=== PATIENT | female | born 1935 | race Caucasian/White ===

== ENCOUNTER 2016-06-16 10:22 | Inpatient (IN) | payer OTHER, BC ==
[~2016-06-16] VITALS: Ht 154.9 cm; Wt 72.6 kg
[~2016-06-16 10:22] MED LIST: ALBUTEROL2.5 MG/0.5 INH; ASPIR 8181 MG PO; ASPIRIN EC81 M1 PO; CENTRUM SILVER1 EAC4 PO; CLONAZEPAM 0.50.5 M1 PO; COENZYME Q10100 M2 PO; COQ1050 MG PO; COZAAR 50 MG TA50 M1 PO; DETROL LA4 MG PO; DUONEB 2.5-0.5 M3 ML INH; FISH OIL + D31 EACH PO; FISH OIL 1,001000 M2 PO; FLONASE 0.05%50 MCG NASAL; FOSAMAX 70 MG T70 MG PO; HYDRALAZINE 2525 MG PO; HYDROCHLOROTH12.5 MG; LASIX 20 MG TAB20 MG PO; LEVOTHYROXIN0.075 MG PO; LIPITOR10 MG PO; NITROGLYCERIN0.4 MG SUBLING; NORCO 5-325 TA1 EACH PO; NORVASC10 MG PO; PAROXETINE HCL20 MG PO; PAXIL10 MG PO; PERFOROMIS20 MCG/2 M IH; PRINIVIL10 MG PO; PROAIR HFA8.5 GM INH; PULMICORT0.25 MG/3 INH; SPIRIVA; SPIRIVA INH; TOPROL XL50 MG; TOPROL XL50 MG PO; VESICARE10 M1 PO; VITAMIN D35000 UNI1 PO; VITAMIN D35000 UNIT PO; VYTORIN 10-401 EACH PO
[2016-06-16 10:23] VITALS: BP 141/66
[2016-06-16] MEDS ORDERED: CO Q-10100 MG PO (10:43)
[2016-06-16 10:46] LABS: URINE BILIRUBIN NEGATIVE (Negative); URINE BLOOD NEGATIVE (Negative); URINE COLOR YELLOW; URINE GLUCOSE-RANDOM* NEGATIVE (Negative); URINE KETONES NEGATIVE (Negative); URINE NITRITE NEGATIVE (Negative); URINE PROTEIN (DIPSTICK) NEGATIVE (Negative); URINE UROBILINOGEN 0.2 E.U./dl (0.2-1.0)
[2016-06-16 12:19] LABS: BASOPHILS 0.7 % (0.0-2.0); EOSINOPHILS 3.2 % (0.0-3.0); HEMATOCRIT 35.3 % (37.0-47.0); HEMOGLOBIN 11.8 gm/dL (12.0-15.0); LYMPHOCYTES 23.5 % (24.0-44.0); MCH 33.6 pg (26.0-34.0); MCHC 33.6 g/dL (28.0-37.0); MCV 100.2 fL (80.0-100.0); MONOCYTES 11.5 % (1.0-8.0); PLATELET COUNT 193 thou/uL (150-400); POLYS 61.1 % (36.0-66.0); RBC 3.52 mil/uL (4.20-5.00); WBC 4.9 thou/uL (4.0-11.0)
[2016-06-16 12:21] LABS: MANUAL DIFF NO
[2016-06-16 12:23] LABS: CALCIUM 9.2 mg/dL (8.5-10.1); CREATININE 0.8 mg/dL (0.6-1.0)
[2016-06-16 12:28] LABS: ALBUMIN 3.4 g/dL (3.4-5.0); TOTAL BILIRUBIN 0.5 mg/dL (<0.1-1.0); TOTAL PROTEIN 6.6 g/dL (6.4-8.2)
[2016-06-16 13:49] VITALS: BP 143/67
[2016-06-16 14:34] VITALS: BP 158/140
[2016-06-16 19:10] VITALS: BP 122/73
[2016-06-17 03:48] LABS: HEMATOCRIT 35.7 % (37.0-47.0); MCH 33.8 pg (26.0-34.0); MCHC 33.7 g/dL (28.0-37.0); MCV 100.2 fL (80.0-100.0); RBC 3.56 mil/uL (4.20-5.00); RDW 13.3 % (10.5-14.5); WBC 4.5 thou/uL (4.0-11.0)
[2016-06-17 03:59] LABS: CALCIUM 9.1 mg/dL (8.5-10.1); POTASSIUM 4.8 mmol/L (3.5-5.1)
[2016-06-17 04:20] VITALS: BP 148/77
[2016-06-17 07:12] VITALS: BP 150/83
[2016-06-17] MEDS ORDERED: CYCLOBENZAPRINE5 MG PO (14:11)
[2016-06-17] MEDS ORDERED: HYDROCODON-ACE1 EAC7 PO (14:12)
[2016-06-17 14:21] VITALS: BP 150/83
== END 2016-06-17 15:31 | disposition home or self-care (01) | DRG 551 ==
LOC: ER 10:22 → EROBS 12:32 → 4W 12:32
PROVIDERS: Hospitalist; Nurse Practitioner Family
DX: M54.89 Other dorsalgia (principal); J96.00 Acute respiratory failure, unspecified whether with hypoxia or hypercapnia; M48.54XA Collapsed vertebra, not elsewhere classified, thoracic region, initial encounter for fracture; M48.56XA Collapsed vertebra, not elsewhere classified, lumbar region, initial encounter for fracture; E78.5 Hyperlipidemia, unspecified; J44.9 Chronic obstructive pulmonary disease, unspecified; I10 Essential (primary) hypertension; M54.16 Radiculopathy, lumbar region; E03.9 Hypothyroidism, unspecified; Z87.891 Personal history of nicotine dependence; I25.2 Old myocardial infarction
CPT/HCPCS: 10040

== ENCOUNTER 2016-12-23 13:45 | Emergency (ER) | payer OTHER, BC ==
[~2016-12-23] VITALS: Ht 152.4 cm; Wt 64.4 kg
[~2016-12-23 13:45] MED LIST changes: +CO Q-10100 MG PO; +CYCLOBENZAPRINE5 MG PO; +HYDROCODON-ACE1 EAC7 PO
[2016-12-23] MEDS ORDERED: NORCO 5-325 TA1 EACH PO (14:35)
[2016-12-23] MEDS ORDERED: NEOMYC-POLYM-DEX5 ML OPHTHALMIC (14:36)
== END 2016-12-23 14:49 | disposition home or self-care (01) ==
LOC: ER 13:45
DX: T26.11XA Burn of cornea and conjunctival sac, right eye, initial encounter (principal); E78.5 Hyperlipidemia, unspecified; J44.9 Chronic obstructive pulmonary disease, unspecified; I10 Essential (primary) hypertension; I25.2 Old myocardial infarction; F10.99 Alcohol use, unspecified with unspecified alcohol-induced disorder; Z87.891 Personal history of nicotine dependence; W86.1XXA Exposure to industrial wiring, appliances and electrical machinery, initial encounter; Y93.89 Activity, other specified; Y92.89 Other specified places as the place of occurrence of the external cause; Y99.8 Other external cause status

== ENCOUNTER 2017-02-23 16:46 | Emergency (ER) | payer OTHER, BC ==
[~2017-02-23] VITALS: Ht 152.4 cm; Wt 65.8 kg
--- NOTE | ~2017-02-23 | EKG ---
[address] [address] ELECTROCARDIOGRAM REPORT Name: GAMAL RAINEY Room #: DEP [facility]#: [id number] Admission: 02/23/17 Attend Phys: Discharge: 02/23/17 Date of : 35 Report #: [id number] THIS REPORT FOR: //name// [facility] ED Test Date: 2017-02-23 Test Time: 17:03:37 Pat Name: GAMAL RAINEY Department: Room: Gender: F Timber Faller: DIANNA : 1935 Requested By: Rocael Jones Order Number: [id number] MD: William Grey Measurements Intervals [place] Rate: 77 P: -19 CT: 188 QRS: 20 QRSD: 154 T: 48 QT: 430 QTc: 487 Interpretive Statements Sinus rhythm Right bundle branch block Baseline wander in lead(s) III,aVF Compared to ECG 01/02/2016 07:39:50 Right bundle-branch block now present Electronically Signed On 02-25-2017 14:03:14 COUNSELING AIDE by William Grey [email or web address] <ELECTRONICALLY SIGNED> By: William Grey MD, FAC 02/25/17 1403 1703 170 William Grey MD, [facility] /EPI
[~2017-02-23 16:46] MED LIST changes: +NEOMYC-POLYM-DEX5 ML OPHTHALMIC
[2017-02-23 17:23] LABS: ABSOLUTE NEUTROPHILS 2.5 thou/uL (1.4-8.2); BASOPHILS 0.8 % (0.0-2.0); EOSINOPHILS 1.5 % (0.0-3.0); HEMATOCRIT 36.6 % (37.0-47.0); HEMOGLOBIN 12.6 gm/dL (12.0-15.0); LYMPHOCYTES 28.4 % (24.0-44.0); MCH 33.5 pg (26.0-34.0); MCHC 34.5 g/dL (28.0-37.0); MCV 97.1 fL (80.0-100.0); MONOCYTES 11.2 % (1.0-8.0); PLATELET COUNT 177 thou/uL (150-400); POLYS 58.1 % (36.0-66.0); RBC 3.77 mil/uL (4.20-5.00); RDW 12.4 % (10.5-14.5); WBC 4.4 thou/uL (4.0-11.0)
[2017-02-23 17:34] LABS: ANION GAP 6 mmol/L (7-16); BUN 10 mg/dL (7-18); CALCIUM 10.2 mg/dL (8.5-10.1); CHLORIDE 100 mmol/L (98-107); CO2 33 mmol/L (21-32); GLUCOSE 106 mg/dL (74-106); POTASSIUM 3.5 mmol/L (3.5-5.1); SODIUM 139 mmol/L (136-145)
[2017-02-23 17:42] LABS: TROPONIN-I < 0.04 ng/mL (<0.06)
[2017-02-23 18:33] VITALS: BP 142/69
== END 2017-02-23 18:53 | disposition home or self-care (01) ==
LOC: ER 16:46
PROVIDERS: Emergency Medicine
DX: J44.1 Chronic obstructive pulmonary disease with (acute) exacerbation (principal); E78.5 Hyperlipidemia, unspecified; I10 Essential (primary) hypertension; Z87.891 Personal history of nicotine dependence

== ENCOUNTER 2018-11-17 08:39 | Emergency (ER) | payer OTHER, BC ==
[~2018-11-17] VITALS: Ht 152.4 cm; Wt 61.2 kg
[2018-11-17 10:56] VITALS: BP 134/67
--- NOTE | 2018-11-17 12:30 | EKG ---
[address] [address] ELECTROCARDIOGRAM REPORT Name: GAMAL RAINEY Room #: DEP [facility]#: [id number] Admission: 11/17/18 Attend Phys: Discharge: 11/17/18 Date of : 35 Report #: [id number] THIS REPORT FOR: //name// [facility] ED Test Date: 2018-11-17 Test Time: 08:42:31 Pat Name: GAMAL RAINEY Department: Room: Gender: F Hotel Yardperson: ALISSA : 1935 Requested By: Shaneka Rutledge Order Number: [id number] MD: William Grey Measurements Intervals [place] Rate: 96 P: 3 MI: 177 QRS: 92 QRSD: 151 T: 34 QT: 391 QTc: 495 Interpretive Statements Sinus rhythm RBBB and LPFB Compared to ECG 02/23/2017 17:03:37 No significant change was found Electronically Signed On 11-17-2018 12:30:26 CDT by William Grey [email or web address] <ELECTRONICALLY SIGNED> By: William Grey MD, [facility] 11/17/18 1230 1 1 William Grey MD, [facility] /EPI
== END 2018-11-17 11:12 | disposition home or self-care (01) ==
LOC: ER 08:39
DX: J31.0 Chronic rhinitis (principal); R06.00 Dyspnea, unspecified; E78.5 Hyperlipidemia, unspecified; I10 Essential (primary) hypertension; I25.2 Old myocardial infarction; J44.9 Chronic obstructive pulmonary disease, unspecified; Z98.890 Other specified postprocedural states; Z87.891 Personal history of nicotine dependence

== ENCOUNTER 2019-12-24 23:55 | Inpatient (IN) | payer OTHER, BC ==
[~2019-12-24] VITALS: Ht 152.4 cm; Wt 50.1 kg
--- NOTE | ~2019-12-24 | EMS ---
[place] [address] EMS Patient Care Report Name: GAMAL RAINEY Room #: PRE M.R.#: [id number] Admission: Attend Phys: Discharge: Date of : 35 Report #: [id number] THIS REPORT FOR: //name// Report Transmitted: 12/25/2019 00:13 EMS Care Summary [place], [place]/[facility] Incident [phone] @ 12/24/2019 23:24 Incident Location [address] 200 Patient GAMAL RAINEY Female, 84 Years 1935 Patient Address [address] [address] Patient History Cancer, Unspecified,Chronic Obstructive Pulmonary Disease (COPD),Hypertension (HTN),Hyperlipidemia,Cardiac Condition - Other, Patient Allergies No known allergies, Patient Medications Unknown, Chief Complaint FALL Disposition Transported No Lights/[place] Dispatch Reason Traumatic Injury Transported To [facility] Narrative DISPATCHED NON EMERGENCY ON A TRAUMATIC INJURY. 84 Y/O FEMALE SITTING UP ON FLOOR IN APARTMENT NEXT TO BED APPEARING IN NO IMMEDIATE DISTRESS. GCS [address] [address] EMS Patient Care Report Name: GAMAL RAINEY Room #: PRE [facility].R.#: [id number] Admission: Attend Phys: Discharge: Date of : 35 Report #: [id number] A/OX4. CONSENTS FOR TX AND TRASPORTATION. PT HAS OXYGEN ON VIA N/C. PT STATES THAT SHE WEARS OXYGEN AT HOME AT 4 LPM. PT CONTINUED ON OXYGEN AT 4 LPM. PT STATES SHE WAS WALKING BACK TO BED FROM USING THE RESTROOM AND FELL. DENIES ANY DIZZINESS OR LOSS OF CONSCIOUSNESS. DENIES TAKING ANY BLOOD THINNERS. PAIN THAT IS WORSE UPON MOVEMENT TO RIGHT UPPER LEG AT 10. DENIES ANY OTHER MEDICAL COMPLAINTS. MOVED WITHOUT INCIDENT TO AMBULANCE VIA STRETCHER. V/S'S OBTAINED. TRANSPORTED TO [facility]. REASSESSED ENROUTE. REMAINS GCS 15 AND ALERT. PAIN REMAINS UNCHANGED AT 10. REPORT CALLED TO HOSPITAL. 2ND SET V/S'S OBTAINED. MOVED WITHOUT INCIDENT TO ER HOSPITAL BED 2. PT CARE TRANSFERRED TO ED RN. Initial Vitals @23:51P: 61,R: 18,BP: 176/80,Pain: 1010,GCS: 15,Revised Trauma: 12, @23:47P: 65,R: 16,BP: 166/79,Pain: 10/10,GCS: 15,SpO2: 95,Revised Trauma: 12, Assessments @23:39MENTAL:Person Oriented,Time Oriented,Event Oriented,Place Oriented,SKIN:HEENT:Eyes: Right Pupil: 4-mm,Eyes: Left Pupil: 4-mm,Head/Face: No Abnormalities,LUNG SOUNDS:Left Upper: Other,General: No Abnormalities,ABDOMEN:Left Upper: Other,General: No Abnormalities,PELVIS//GI:EXTREMITIES:Right Leg: Other,Right Leg: MAYDA,Capillary Refill: Right Upper: < 2 Sec,Capillary Refill: Left Upper: < 2 Sec,Capillary Refill: Right Lower: < 2 Sec,Capillary Refill: Left Lower: < 2 Sec,Left Arm: No Abnormalities,Right Arm: No Abnormalities,Left Leg: No Abnormalities,PULSE:Radial: 2+ Normal,NEURO:No Abnormalities, Impression Injury of Thigh (Upper Leg) Procedures @23:39ALS AssessmentResponse: UnchangedSucceeded@23:41StretcherResponse: Unchanged@PTAOxygen FlowRate: 4 Device: Nasal Cannula (NC) Response: Unchanged Timeline HAIRSPRING STUDDER,Oxygen FlowRate: 4 Device: Nasal Cannula (NC) Response: Unchanged 23:22,Call Received 23:22,Dispatch Notified 23:24,Dispatched 23:24,En Route 23:31,On Scene 23:38,At Patient 23:39,ALS Assessment,Response: UnchangedSucceeded, 23:41,Stretcher,Response: Unchanged 23:47,BP: 166/79 M,PULSE: 65,RR: 16 R,SPO2: 95 Ox,ETCO2: ,BG: ,PAIN: 10,GCS: 15, 23:48,Depart Scene [address] [place] [address] EMS Patient Care Report Name: GAMAL RAINEY JUVENAL Room #: PRE ER M.R.#: [id number] Admission: Attend Phys: Discharge: Date of : 35 Report #: [id number] 23:51,BP: 176/80 M,PULSE: 61,RR: 18 R,SPO2: Ox,ETCO2: ,BG: ,PAIN: 10,GCS: 15, 23:51,At Destination 00:05,Call Closed Disclaimer v1.1 Copyright 2020 [employer] This EMS Care Summary contains data elements from the applicable legal record (which may be displayed differently). It is designed to provide pertinent information for the following purposes: continuity of care, clinical quality, and state data reporting. The complete legal record is available to ED staff and administrators of the receiving hospital in [employer]'s Patient Tracker. All data is provided "as is."
[2019-12-24 23:56] VITALS: BP 188/74
[2019-12-25] VITALS (10 sets, daily range): BP systolic 105–147; BP diastolic 64–90
[2019-12-25] MEDS ORDERED: TOPROL XL50 MG PO (00:05)
[2019-12-25] MEDS ORDERED: XALATAN2.5 ML OPHTHALMIC (00:05)
[2019-12-25] MEDS ORDERED: LEVO-T75 MCG PO (00:05)
[2019-12-25] MEDS ORDERED: TRAMADOL 50 MG50 MG PO (00:06)
[2019-12-25] MEDS ORDERED: LIDODERM1 EACH TOP (00:06)
[2019-12-25 01:11] LABS: ABSOLUTE NEUTROPHILS 2.7 thou/uL (1.4-8.2); BASOPHILS 0.3 % (0.0-2.0); EOSINOPHILS 2.5 % (0.0-3.0); HEMATOCRIT 32.2 % (37.0-47.0); HEMOGLOBIN 10.6 gm/dL (12.0-15.0); LYMPHOCYTES 29.7 % (24.0-44.0); MCH 34.1 pg (26.0-34.0); MCHC 32.9 g/dL (28.0-37.0); MCV 103.7 fL (80.0-100.0); MONOCYTES 11.7 % (1.0-8.0); PLATELET COUNT 167 thou/uL (150-400); POLYS 55.8 % (36.0-66.0); RDW 12.5 % (10.5-14.5); WBC 4.8 thou/uL (4.0-11.0)
[2019-12-25 01:16] LABS: CALCIUM 9.4 mg/dL (8.5-10.1); CREATININE 0.8 mg/dL (0.6-1.0); POTASSIUM 3.8 mmol/L (3.5-5.1)
--- NOTE | 2019-12-25 03:38 | NUR ---
ATTEMPTED TO CALL REPORT, PHONE KEPT RINGING WITH NO ANSWER
--- NOTE | 2019-12-25 06:28 | NUR ---
PT ARRIVED FROM ER THIS AM @0410. A&OX4 [place] WITH HEARING AIDS BY BEDSIDE. ADMISSION DONE AND PT ORIENTED TO THE UNIT. CLEAR LUNGS SOUND AND NO SKIN ISSUE. NPO FOR POSSIBLE SX. RT HIP FX. VSS. FALL PREC IN PLACE AND CALL LIGHT IN REACH WILL CONT TO MONITOR.
--- NOTE | 2019-12-25 08:46 | EKG ---
[facility] [address] [place] [address] ELECTROCARDIOGRAM REPORT Name: GAAML RAINEY Room #: 438-P ADM IN M.R.#: [id number] Admission: 12/25/19 Attend Phys: Yoandy Cutler, Discharge: Date of : 35 Report #: [id number] THIS REPORT FOR: cc: MOSHE DARLING Physician not on staff William Grey MD [facility] THIS REPORT FOR: //name// [facility] ED Test Date: 2019-12-25 Test Time: 02:51:29 Pat Name: GAMAL RAINEY Department: Room: [facility] Gender: F Medical Technicians: sunil : 1935 Requested By: Cliff Mondragon Order Number: [id number] MD: William Grey Measurements Intervals [place] Rate: 69 P: 0 MA: 196 QRS: 62 QRSD: 155 T: 44 QT: 466 QTc: 500 Interpretive Statements Sinus rhythm Right bundle branch block Compared to ECG 11/17/2018 08:42:31 No significant change was found Electronically Signed On 12-25-2019 8:45:58 CDT by William Grey [email or web address] <ELECTRONICALLY SIGNED> By: William Grey MD, FACC 12/25/19 0845 0 025 William Grey MD, [facility] /EPI
--- NOTE | 2019-12-25 09:13 | NUR ---
ASSESSMENT: CM REVIEWED CHART AND MET WITH PT AT THE BEDSIDE. PT IS ALERT AND ORIENTED X4. PT ADMITS FROM [facility]. PT REPORTS LIVING IN AN APT ALONE. PT HAS A RIGHT HIP FX AND IS GOING TO GET SURGICAL REPAIR. PT REPORTS USING A CANE AND WALKER AT HER APT. PT REPORTS GETTING 3MEALS/DAY AT [facility]. PT REPORTS SHE DOES NOT CURRENTLY HAVE HH. PT STATES SHE HAS OXYGEN AT HER APT THROUGH [employer]. CM DISCUSSED ROLE. CM ALSO RECEIVED A CALL FROM WHO IS CONSULTED AND WILL SEE HOW PATIENT IS ABLE TO DO WITH THERAPIES POST OP. CM DISCUSSED WITH PATIENT AND PT IS AGREEABLE IF SHE IS TO QUALIFY. CM WILL CONTINUE TO FOLLOW TO ASSIST NEEDED.
--- NOTE | 2019-12-25 14:01 | NUR ---
PT AOX4, [place], VSS, WENT TO SURGURY FOR RIGHT HIP. PT CAME BACK TO UNIT 1400, DRESSING ON RIGHT HIP IS CDI. PT HAS SCDS, ICE PACK, 2L O2 PER NC. PT IS CURRENTLY SLEEPING, DENIES PAIN AT THIS TIME. IV PATENT IN L AC, FLUIDS RUNNING ORDERED. FALL PRECAUTIONS IN PLACE, WILL CONTINUE TO MONITOR.
--- NOTE | 2019-12-25 17:08 | NUR ---
PATIENT ADMITTED FROM OR WITH L5-S1 LAMINECTOMY, AQUACEL DRESSIN IN PLACE TO LOW BACK. PATIENT C/O MILD PAIN TO BACK AREA. PATIENT DOESN'T WANT ACCOUNTS RECEIVABLE EXECUTIVE PUMP, THIS RN NOTIFIED DR STILL, DR STILL HERE TO SEE THE PATIENT, DR STILL STATES PATIENT DOESN'T NEED ACCOUNTS RECEIVABLE EXECUTIVE PUMP WILL DISCONTINUE. NO C/O NAUSEA, DIET UPGRADED TO REGULAR DIET. ADMISSION COMPLETED, REPORT GIVEN TO KEENA/RN.
[2019-12-26 00:18] VITALS: BP 100/63
--- NOTE | 2019-12-26 04:01 | NUR ---
ASSESSED AT START OF SHIFT. PT A&OX4, [place]F[employer] SAL[place]. IV PAIN MED GIVEN FOR RT HIP PAIN. DRESSING C/D/I. IV INTACT WITH IVF. PT ON 2L NC. SPOKE WITH PT ADEN RAINEY AT START OF SHIFT ([phone]) UPDATED HER ON PT CARE AND PROGRESS. ICE PACK FOR COMFORT. PT VOIDS VIA BEDPAN. SCD'S IN PLACE. FALL PREC MAINTAINED AND WILL CONT WITH POC TILL EOS.
[2019-12-26 04:15] VITALS: BP 111/66
[2019-12-26 05:38] LABS: ABSOLUTE NEUTROPHILS 3.9 thou/uL (1.4-8.2); BASOPHILS 0.2 % (0.0-2.0); HEMATOCRIT 23.4 % (37.0-47.0); LYMPHOCYTES 8.8 % (24.0-44.0); MCH 34.6 pg (26.0-34.0); MCHC 33.3 g/dL (28.0-37.0); MCV 104.1 fL (80.0-100.0); MONOCYTES 8.3 % (1.0-8.0); PLATELET COUNT 133 thou/uL (150-400); POLYS 82.7 % (36.0-66.0); RBC 2.24 mil/uL (4.20-5.00); RDW 12.7 % (10.5-14.5); WBC 4.8 thou/uL (4.0-11.0)
[2019-12-26 05:44] LABS: CALCIUM 9.2 mg/dL (8.5-10.1); CREATININE 0.9 mg/dL (0.6-1.0); MAGNESIUM 1.6 mg/dL (1.8-2.4); POTASSIUM 4.9 mmol/L (3.5-5.1)
[2019-12-26 05:51] LABS: HEMOGLOBIN 7.8 gm/dL (12.0-15.0)
[2019-12-26 07:40] VITALS: BP 130/56
--- NOTE | 2019-12-26 09:59 | O ---
[facility] [place] [address] OPERATIVE REPORT Name: GAMAL RAINEY Room #: 438-P ADM IN M.R.#: [id number] Admission: 12/25/19 Attend Phys: Yoandy Cutler, Discharge: Date of : 35 Report #: [id number] THIS REPORT FOR: cc: MOSHE DARLING Physician not on staff Stefano Beltran MD ~ CC: Francis Cutler Physician staff Prasanna Mota DATE OF SERVICE: 12/25/2019 PREOPERATIVE DIAGNOSIS: Fracture, right proximal femur. POSTOPERATIVE DIAGNOSIS: Fracture, right proximal femur. PROCEDURE: Open reduction and internal fixation, right proximal femur fracture with antegrade TFN nail fixation. SURGEON: Stefano Beltran MD INDICATIONS: This frail, but still ambulatory 84-year-old female stumbled and fell injuring the right hip. She had a similar fracture on the left side, treated with surgical repair 1 or 2 years ago. She has been functioning reasonably well, but still has some pain on that side. She has no other new injuries. X-rays confirmed a displaced and unstable intertrochanteric fracture. I have discussed this with the patient and she understands well. She prefers to go ahead with surgical repair. DESCRIPTION OF PROCEDURE: The patient was taken to the operating room where she was placed under general anesthesia. Prophylactic intravenous antibiotics were administered. She was positioned on the fracture table such that good visualization of the right hip could be established. The lateral aspect of the right hip and thigh were meticulously prepped and draped. A small skin incision was made just proximal to the greater trochanter. A guidewire was passed down the canal and the trochanter was opened with a small reamer. The [employer]s TFN nail system was utilized with a size 10 mm nail. This was advanced to an appropriate position. A lateral guidewire was then placed through the lateral femoral cortex and in the low mid portion of the femoral neck and head. A 95 mm length helical blade was then inserted. This brought the tip of the device to about 1 cm below the subchondral bone in the mid to lower head and neck region. It seated nicely and appeared to be secure. The proximal locking screw was tightened down. A distal interlocked screw was placed using the outrigger guide. This resulted in satisfactory alignment and stability. The [address] [address] OPERATIVE REPORT Name: GAMAL RAINEY Room #: 438-P [facility] IN .R.#: [id number] Admission: 12/25/19 Attend Phys: Yoandy Cutler, Discharge: Date of : 35 Report #: [id number] skin incisions were closed with 2-0 Monocryl and skin alyson. A sterile dressing was applied. The patient was awakened and returned to the recovery room in good condition. <ELECTRONICALLY SIGNED> By: Stefano Beltran MD 12/26/19 0959 1248 1257 Stefano Beltran MD /grisel
--- NOTE | 2019-12-26 11:16 | NUR ---
PT CARE ASSUMED AT 0700. A&Ox4. SCD'S, ICEPACK IN PLACE. USINF IS FREQUENTLY.NO SKIN ISSUES, DRESSING CHANGED POST OP DAY 1. PAIN MANAGED WELL WITH PO PAIN MEDICATIONS ON BOARD. HIP PRECOUTIONS IN PLACE. LIDOCAINE PATCH APPLIED TO RIGHT LEG. ON 2L O2. BASELINE 2-3L. PT HAS LEFT HER DENTURES AT HOME AND IS ORDERING SOFTER FOODS FROM DIETARY. 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 REHAB EVALUATION TODAY FOR 5N. FALL PROTOCOL IN PLACE. CALL LIGHT IN REACH. WILL CONTINUE TO MONITOR. PT HAS ACCIDENTALY PULLED OUT IV.
[2019-12-26 12:19] LABS: ALBUMIN 2.7 g/dL (3.4-5.0); TOTAL BILIRUBIN 0.4 mg/dL (0.2-1.0); TOTAL PROTEIN 5.8 g/dL (6.4-8.2)
--- NOTE | 2019-12-26 12:47 | NUR ---
Pt B12 level low 181, recommend start supplementation.
[2019-12-26 13:13] LABS: ABSOLUTE NEUTROPHILS 7.5 thou/uL (1.4-8.2); BASOPHILS 0.1 % (0.0-2.0); HEMATOCRIT 23.1 % (37.0-47.0); HEMOGLOBIN 7.8 gm/dL (12.0-15.0); LYMPHOCYTES 7.3 % (24.0-44.0); MCH 34.7 pg (26.0-34.0); MCHC 33.7 g/dL (28.0-37.0); MCV 103.1 fL (80.0-100.0); MONOCYTES 10.8 % (1.0-8.0); PLATELET COUNT 171 thou/uL (150-400); POLYS 81.8 % (36.0-66.0); RBC 2.24 mil/uL (4.20-5.00); RDW 12.7 % (10.5-14.5); WBC 9.2 thou/uL (4.0-11.0)
--- NOTE | 2019-12-26 15:20 | NUR ---
on-going assessment: FARZANEH REVIEWED CHART AND SPOKE WITH [facility]. THEY REPORT PT IS MORE APPROPRIATE FOR SNF. THEY HAVE NOTIFIED PTS SON AND DAUGHTER IN [place]. SON REQUEST WE SPEAK WITH HIS CECY SHE KNOWS MORE INFORMAITON ABOUT PLACEMENT. CM SPOKE WITH HER AND SHE IS REQUESTING WE SEND A REFERRAL TO [facility]. CM FAXED REFERRAL AND NOTIFIED [facility] WHO REPORTS THEY ARE TIGHT ON BEDS BUT MAY HAVE ONE SUNDAY. FARZANEH SPOKE WITH ATTENDING WHO REPORTS PT WILL BE HERE OVER THE WEEKEND AND POSSIBLE DISCHARGE SUNDAY. CM WILL AWAIT FURTHER INPUT FROM [facility]. FARZANEH ALSO EMAILED CECY ALTERNATE OPTIONS FOR SNF TO REVIEW TO HER EMAIL [email or web address].
[2019-12-26 16:55] LABS: URINE BILIRUBIN NEGATIVE (Negative); URINE BLOOD NEGATIVE (Negative); URINE CLARITY CLEAR; URINE COLOR YELLOW; URINE GLUCOSE-RANDOM* NEGATIVE (Negative); URINE KETONES NEGATIVE (Negative); URINE LEUKOCYTES-REFLEX NEGATIVE (Negative); URINE NITRITE-REFLEX NEGATIVE (Negative); URINE PROTEIN (DIPSTICK) NEGATIVE (Negative); URINE SPECIFIC GRAVITY 1.025 (1.005-1.035); URINE UROBILINOGEN 0.2 E.U./dl (0.2-1.0)
[2019-12-26 17:30] VITALS: BP 133/54; BP 145/60
[2019-12-26 19:32] VITALS: BP 133/54
--- NOTE | 2019-12-27 02:10 | NUR ---
ASSUMED PT CARE AT 1915. PT IS ALERT TO SELF WITH CONFUSION. VSS. PT PULLS OUT HER IV TWICE. IV IS NOW IN HER LEFT FOREARM. BLOOD WAS RUNNING AT 60 MLS/HR. I CHECKED WITH MY CHARGE. THE BLOOD WAS NOT RUNNING AT THE RIGHT RATE. 145 CC'S WAS MEASURED AND WASTED. AFTER CALLING LAB/ HOUSE SUPERVISER / AND RESIDENTIAL GAS HEAT TECHNICIAN (LOPEZ). HOUSE SUPERVISER (HOWARD) STATED THAT IF THE BLOOD WAS NOT DONE IN THE 4 HRS IT NEEDS TO BE STOPPED. RESIDENTIAL GAS HEAT TECHNICIAN (LOPEZ) STATES TO STOP THE BLOOD WELL. LOPEZ ORDERED A H&H. HEMOGLOBIN IS 7.9. CALLED LOPEZ AND SHE SAID THAT 7.9 WAS OKAY AND TO NOT DO ANYTHING AT THE MOMENT. PT IS IMPULSIVE AND NON COMPLIANT. PT KEEPS GETTING OUT OF THE BED AND SAYING SHE NEEDS TO USE THE RESTROOM AFTER URINATING. PT ALSO TAKES OFF HER GOWN IN CONFUSION ABOUT WHERE SHE IS. WILL CONTINUE TO MONITOR.
[2019-12-27 05:27] LABS: HEMOGLOBIN 8.1 gm/dL (12.0-15.0); MCH 33.9 pg (26.0-34.0); MCHC 33.7 g/dL (28.0-37.0); MCV 100.6 fL (80.0-100.0); RBC 2.39 mil/uL (4.20-5.00); RDW 15.4 % (10.5-14.5)
[2019-12-27 05:50] LABS: CALCIUM 9.1 mg/dL (8.5-10.1); CREATININE 0.9 mg/dL (0.6-1.0); MAGNESIUM 2.2 mg/dL (1.8-2.4); PHOSPHORUS 2.1 mg/dL (2.5-4.9); POTASSIUM 4.3 mmol/L (3.5-5.1)
[2019-12-27 07:20] VITALS: BP 164/59
--- NOTE | 2019-12-27 10:48 | NUR ---
PT CARE ASSUMED AT 0700. ALERT AND ORIENTED TO SELF, AND SITUATION. CT SCAN PERFORMED. PT MOVED CLOSER TO NURSES STATION FOR SAFETY. PT IS VERY IMPULSIVE AND DOES NOT COMPLY WITH HER HIP PRECATIOUNS AND WILL STAND UP AND ELLE FULL WEIGHT ON BOTH LEG. IV PATENT WITH NO REDNESS OR EDEMA, SALINE LOCKED. FALL PROTOCOL IN PLACE. CALL LIGHT IN PLACE. WILL CONTINUE TO MONITOR.
[2019-12-27 20:37] VITALS: BP 141/57
[2019-12-28 04:37] VITALS: BP 159/57
--- NOTE | 2019-12-28 05:13 | NUR ---
PT LYING IN BED. VOIDING PER BEDPAN. DENIES PAIN. RESTING COMFORTABLY. NO NEEDS VOICED. CALL LIGHT WITHIN REACH. FREQUENT OBSERVATION.
[2019-12-28 05:55] LABS: HEMATOCRIT 23.3 % (37.0-47.0); HEMOGLOBIN 7.9 gm/dL (12.0-15.0); MCH 34.3 pg (26.0-34.0); MCHC 33.9 g/dL (28.0-37.0); MCV 101.3 fL (80.0-100.0); RBC 2.3 mil/uL (4.20-5.00); RDW 14.7 % (10.5-14.5); WBC 4.6 thou/uL (4.0-11.0)
[2019-12-28 07:05] VITALS: BP 147/57
--- NOTE | 2019-12-28 14:11 | NUR ---
PT ASSESSED AT START OF SHIFT. NO C/O PAIN UNLESS REPOSITIONING PT. USING THE BEDPAN AND RETAINING URINE. SCANNED 780 MLS AND VOIDED 300. WILL PLACE BLACKMON PER ORDERS. SOME MILD CONFUSION W/ SOME RAPID BREATING ON HER 3L NC HOME DOSE. AFTER VOIDING BREATHING CALMED AND MORE COHERENT. PCXR DONE AND NO FINDINGS. EATING AND DRINKING WELL. RT HIP DSNG CHANGED W/ OLD DRIED BLOOD. MELISSA IN CLOSE APPROXIMATION. SOME EDEMA AND BRUISING NOTED. ORTHO IN TO SEE PT.
[2019-12-28 16:35] VITALS: BP 142/56
[2019-12-28 19:11] LABS: URINE BLOOD NEGATIVE (Negative); URINE CLARITY CLEAR; URINE COLOR YELLOW; URINE GLUCOSE-RANDOM* NEGATIVE (Negative); URINE KETONES NEGATIVE (Negative); URINE LEUKOCYTES-REFLEX NEGATIVE (Negative); URINE NITRITE-REFLEX NEGATIVE (Negative); URINE PROTEIN (DIPSTICK) NEGATIVE (Negative); URINE UROBILINOGEN 0.2 E.U./dl (0.2-1.0)
[2019-12-28 19:13] LABS: ICTOTEST (BILI CONFIRMATORY) Negative (Negative); URINE BILIRUBIN NEGATIVE (Negative)
[2019-12-28 19:16] VITALS: BP 136/58
--- NOTE | 2019-12-29 00:36 | NUR ---
PT LYING IN BED. LORTAB PROVIDING PAIN RELIEF. RESTING COMFORTABLY. NO NEEDS VOICED. CALL LIGHT WITHIN REACH. FREQUENT OBSERVATION.
[2019-12-29 06:09] LABS: HEMATOCRIT 23.2 % (37.0-47.0); HEMOGLOBIN 7.8 gm/dL (12.0-15.0); MCH 33.9 pg (26.0-34.0); MCHC 33.5 g/dL (28.0-37.0); MCV 101.3 fL (80.0-100.0); PLATELET COUNT 178 thou/uL (150-400); RBC 2.29 mil/uL (4.20-5.00); RDW 14.4 % (10.5-14.5); WBC 4.3 thou/uL (4.0-11.0)
[2019-12-29 06:30] LABS: ALBUMIN 2.7 g/dL (3.4-5.0); CALCIUM 9.4 mg/dL (8.5-10.1); CREATININE 0.7 mg/dL (0.6-1.0); MAGNESIUM 1.8 mg/dL (1.8-2.4); PHOSPHORUS 3.7 mg/dL (2.5-4.9); POTASSIUM 4.1 mmol/L (3.5-5.1); TOTAL BILIRUBIN 0.6 mg/dL (0.2-1.0); TOTAL PROTEIN 5.8 g/dL (6.4-8.2)
[2019-12-29 07:24] VITALS: BP 136/52
[2019-12-29 08:28] LABS: ANISOCYTOSIS 1+
--- NOTE | 2019-12-29 13:40 | NUR ---
ON-GOING ASSESSMENT: CM REVIEWED CHART AND SPOKE WITH ATTENDING. PT IS PROGRESSING TOWARDS DISCHARGE GOALS. [facility] REPORTS THEY HAVE A BED OPEN TOMORROW. PLANS ARE TO LIKELY DISCHARGE TO SNF ([facility]) TOMORROW. CM LEFT A VM FOR PATIENTS SON. CM WILL CONTINUE TO FOLLOW. CM FAXED UPDATES TO [facility].
[2019-12-29 16:21] VITALS: BP 128/69
[2019-12-29 18:59] VITALS: BP 152/70
--- NOTE | 2019-12-30 03:53 | NUR ---
ASSUMED PT CARE AT 1900. PT IS A&OX3. PT STATES THAT SHE IS IN PAIN. I ADMINISTERED PAIN MEDS. ASKS FOR MELATONIN TO SLEEP. PT IS RESTING IN HER ROOM. I GAVE REPORT ON THE PT TO BENNY (GISELLA).
[2019-12-30 04:08] VITALS: BP 150/71
--- NOTE | 2019-12-30 05:21 | NUR ---
ASSUMED CARE OF PT @2200. PT RESTING WELL IN BED. ON 2L OF O2. FOLLEY INTACT AND DRAINING. RT HIP DRESSING INTACT. FALL PREC IN PLACE FREQ ROUNDING DONE WILL CONT WIH POC TILL EOS.
[2019-12-30 07:45] VITALS: BP 151/69
[2019-12-30 08:12] VITALS: BP 151/69
[2019-12-30] MEDS ORDERED: ENOXAPARIN30 MG/0.3 SUBQ (13:30)
--- NOTE | 2019-12-30 13:44 | NUR ---
ON-GOING ASSESSMENT: CM REVIEWED CHART AND SPOKE WITH ATTENDING. PT HAS ORDERS TO DISCHARGE TODAY TO SNF ([facility]). CM SPOKE WITH [facility] WHO REPORTS THEY CANNOT ACCEPT PT UNTIL 1500. CM NOTIFIED ATTENDING, BEDSIDE RN, PATIENT, WELL HER SON AND DAUGHTER IN LAW. TRANSPORTATION IS ARRANGED TO 1500. BEDSIDE RN HAS THE NUMBER FOR REPORT. CHART COPY WAS ORDERED AND PSYCHOLOGIST MILITARY PERSONNEL WAS NOTIFIED. CM FAXED DISCHARGE ORDERS TO [facility] AND CONFIRMED THEY RECEIVED THEM. CASE CLOSED.
--- NOTE | 2019-12-30 20:07 | NUR ---
Assumed care of pt. at 0700. Pt. was calm and cooperative. Shortly after breakfast, pt. vomitted. No emesis in vomit. Pt. stated she no longer had n/v . Physician alerted, no orders given. Pt. had 2 large bowel movements after lunch and said she felt much better. contacted about removal of catheter before transfer, ordered it be left in. Pt. transferred to facility at 1500. Report called to admitting nurse.
== END 2019-12-30 15:21 | DRG 480 ==
LOC: ER 23:55 → 4S 12-25 03:28 → EROBS 12-25 03:28 → 4S 12-25 03:53
PROVIDERS: Emergency Medicine; Internal Medicine; Nurse Practitioner; Orthopaedic Surgery; ADMIT Surgery; ATTEND Surgery
PROC: 0QS606Z Reposition Right Upper Femur with Intramedullary Internal Fixation Device, Open Approach (ICD-10-PCS; 2019-12-25)
PROC: 30233N1 Transfusion of Nonautologous Red Blood Cells into Peripheral Vein, Percutaneous Approach (ICD-10-PCS; principal; 2019-12-26)
DX: S72.141A Displaced intertrochanteric fracture of right femur, initial encounter for closed fracture (principal); E43 Unspecified severe protein-calorie malnutrition; D62 Acute posthemorrhagic anemia; G93.40 Encephalopathy, unspecified; J44.9 Chronic obstructive pulmonary disease, unspecified; E78.5 Hyperlipidemia, unspecified; I10 Essential (primary) hypertension; E03.9 Hypothyroidism, unspecified; I25.10 Atherosclerotic heart disease of native coronary artery without angina pectoris; E53.8 Deficiency of other specified B group vitamins; R63.4 Abnormal weight loss; E83.42 Hypomagnesemia; F03.90 Unspecified dementia, unspecified severity, without behavioral disturbance, psychotic disturbance, mood disturbance, and anxiety; R33.9 Retention of urine, unspecified; W18.39XA Other fall on same level, initial encounter; Z96.652 Presence of left artificial knee joint; Z20.828 Contact with and (suspected) exposure to other viral communicable diseases; I25.2 Old myocardial infarction; Y93.89 Activity, other specified; Z79.899 Other long term (current) drug therapy; Z79.82 Long term (current) use of aspirin; Z95.1 Presence of aortocoronary bypass graft; Z85.43 Personal history of malignant neoplasm of ovary; Z90.710 Acquired absence of both cervix and uterus; Z87.891 Personal history of nicotine dependence; Z98.42 Cataract extraction status, left eye; Z98.41 Cataract extraction status, right eye; Z92.3 Personal history of irradiation; Z68.21 Body mass index [BMI] 21.0-21.9, adult; Y92.89 Other specified places as the place of occurrence of the external cause; Y99.8 Other external cause status
CPT/HCPCS: 10195; 50010; 50101; 50133; 50386; 51412; 51538; 52304; 56525; 57092; 57281; 57804; 57901; 62110; 62900; 70005